=== PATIENT | female | born 1965 | race Caucasian/White ===

== ENCOUNTER 2017-10-14 13:09 | Emergency (ER) | payer OTHER ==
[2017-10-14 13:09] VITALS: BMI 34.5
[2017-10-14 13:28] VITALS: BP 139/83; PULSE 79; RESP 18; TEMP 98; O2SAT 100
--- NOTE | 2017-10-14 13:45 | C.PDOC ---
History Of Present Illness 51 y/o female presents to ED with complaints of sore throat and subjective fever since last night. Patient states she notice blood in spit and "hurts when swallowing" and "She can't swallow solids". pt later states she has pain with swallowing, but can actually take the food down. Patient denies nausea, vomiting, diarrhea, chest pain or any other complaints at this time. Time Seen by Provider: 10/14/17 13:32 Chief Complaint (Nursing): ENT Problem History Per: Patient History/Exam Limitations: no limitations Onset/Duration Of Symptoms: Days Current Symptoms Are (Timing): Still Present Location Of Pain: Throat Past Medical History Reviewed: Historical Data, Nursing Documentation, Vital Signs Vital Signs: Last Vital Signs Temp 98 F 10/14/17 13:24 Pulse 79 10/14/17 13:24 Resp 18 10/14/17 13:24 BP 139/83 10/14/17 13:24 Pulse Ox 100 10/14/17 16:06 - Medical History PMH: HTN Surgical History: No Surg Hx Family History: States: No Known Family Hx - Social History Hx Alcohol Use: Yes Hx Substance Use: No - Immunization History Hx Tetanus Toxoid Vaccination: Yes Hx Influenza Vaccination: No Hx Pneumococcal Vaccination: Yes Review Of Systems Except As Marked, All Systems Reviewed And Found Negative. ENT: Positive for: Throat Pain, Throat Swelling Physical Exam - Physical Exam Appears: Non-toxic, No Acute Distress Skin: Normal Color, Warm, Dry, No Rash Head: Atraumatic, Normacephalic Eye(s): bilateral: Normal Inspection Ear(s): Bilateral: Normal Oral Mucosa: Moist Throat: Erythema, No Exudate, No Drooling Neck: Normal ROM, Supple Cardiovascular: Rhythm Regular Respiratory: Normal Breath Sounds, No Rales, No Rhonchi, No Wheezing Gastrointestinal/Abdominal: Soft, No Tenderness, No Guarding, No Rebound Extremity: Normal ROM, No Pedal Edema Neurological/Psych: Oriented x3 ED Course And Treatment O2 Sat by Pulse Oximetry: 100 (RA) Pulse Ox Interpretation: Normal Medical Decision Making Medical Decision Making: as pt reports "difficulty swallowing", offered ct imaging - p tdeclines and states "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 rapid strep neg, pt taking po. advise pt to f/u with pmd and return precautions. Disposition - Disposition Referrals: Larry Lerma MD [Staff Provider] - Disposition: HOME/ ROUTINE Disposition Time: 16:06 Condition: STABLE Additional Instructions: follow up with your doctor/specialist. return to er with worsening symptoms or concerns. Instructions: Pharyngitis (ED) Forms: [facility] (Faroese) - Clinical Impression Clinical Impression: Pharyngitis - Scribe Statement The provider has reviewed the documentation as recorded by the Baldoibbritt Mix All medical record entries made by the Stephen were at my direction and personally dictated by me. I have reviewed the chart and agree that the record accurately reflects my personal performance of the history, physical exam, medical decision making, and the department course for this patient. I have also personally directed, reviewed, and agree with the discharge instructions and disposition.
== END 2017-10-14 16:02 | disposition home or self-care (01) ==
LOC: C.ER 13:09
DX: J02.9 Acute pharyngitis, unspecified (principal)
CPT/HCPCS: 87070; 87430; 99282; J8540

== ENCOUNTER 2018-09-25 12:49 | Emergency (ER) | payer OTHER ==
[2018-09-25 12:49] VITALS: BMI 26.7
[2018-09-25] MEDS ORDERED: Albuterol-Ipratrop 3 mg / 0.5 (3 ml) UD INH STA ×2 (14:19→14:49)
--- NOTE | 2018-09-25 14:22 | C.PDOC ---
History Of Present Illness 52 y/o female with PMH HTN presents to the ER complaining of intermittent cough which has been present for the past 1.5 months after prior URI. Patient states that she now has cough productive of yellow and green sputum. Associated nasal congestion and sore throat for the last 4 days. She is also complaining of chronic right hip pain, she was evaluated for the pain in the clinic, for which she has been taking Motrin w/o relief. No recent travel/surgery/immobilizaiton, or PMH/FH of DVT/PE. Up to date on flu shot. Denies having headache, fever, chills, visual changes, neck pain, CP, SOB, vomiting, hemoptysis, calf swelling, calf pain, abdominal pain, back pain, urinary symptoms, and diarrhea. Chief Complaint (Nursing): Flu-like Symptoms History Per: Patient History/Exam Limitations: no limitations Onset/Duration Of Symptoms: Days Current Symptoms Are (Timing): Still Present Severity: Moderate Past Medical History Reviewed: Historical Data, Nursing Documentation, Vital Signs Vital Signs: Last Vital Signs Temp 98.1 F 09/25/18 13:29 Pulse 93 H 09/25/18 13:29 Resp 20 09/25/18 13:29 BP 144/85 09/25/18 13:29 Pulse Ox 99 09/25/18 13:29 - Medical History PMH: HTN Surgical History: No Surg Hx Family History: States: No Known Family Hx - Social History Hx Alcohol Use: No Hx Substance Use: No - Immunization History Hx Tetanus Toxoid Vaccination: Yes Hx Influenza Vaccination: No Hx Pneumococcal Vaccination: Yes Review Of Systems Except As Marked, All Systems Reviewed And Found Negative. Constitutional: Negative for: Fever, Chills Eyes: Negative for: Vision Change, Redness ENT: Positive for: Nose Congestion, Throat Pain Cardiovascular: Negative for: Chest Pain, Palpitations, Edema, Light Headedness Respiratory: Positive for: Cough, Sputum. Negative for: Shortness of Breath, Hemoptysis, SOB with Excertion, Pleuritic Pain, Wheezing Gastrointestinal: Negative for: Nausea, Vomiting, Abdominal Pain, Diarrhea Genitourinary: Negative for: Dysuria, Frequency Musculoskeletal: Negative for: Neck Pain, Back Pain Skin: Negative for: Rash Neurological: Negative for: Weakness, Numbness, Headache, Dizziness Physical Exam - Physical Exam Appears: Well, Non-toxic, No Acute Distress Skin: Normal Color, Warm, Dry Eye(s): bilateral: Normal Inspection, PERRL, EOMI Ear(s): Bilateral: Normal Nose: Normal Oral Mucosa: Moist Tongue: Normal Appearing Lips: Normal Appearing Throat: Normal Neck: Normal Cardiovascular: Rhythm Regular Respiratory: Decreased Breath Sounds, Wheezing (mild; expiratory throughout all lung brown) Gastrointestinal/Abdominal: Normal Exam Back: Normal Inspection Extremity: Normal ROM, No Tenderness, No Deformity Extremity: Bilateral: Atraumatic, No Pedal Edema, Normal Color And Temperature, Normal ROM Pulses: Left Radial: Normal, Right Radial: Normal Neurological/Psych: Oriented x3, Normal Speech, Normal Cognition, Normal Cranial Nerves, Normal Motor, Normal Sensation Gait: Steady ED Course And Treatment O2 Sat by Pulse Oximetry: 99 (RA) Pulse Ox Interpretation: Normal Medical Decision Making Medical Decision Making: Plan: --CXR --Rapid Strep --Duoneb CXR FINDINGS: LUNGS: No active pulmonary disease. PLEURA: No significant pleural effusion identified. No pneumothorax apparent. CARDIOVASCULAR: No aortic atherosclerotic calcification present. Normal cardiac size. No pulmonary vascular congestion. OSSEOUS STRUCTURES: No significant abnormalities. VISUALIZED UPPER ABDOMEN: Normal. OTHER FINDINGS: None. IMPRESSION: No acute cardiopulmonary disease appreciated. Rapid strep: negative Patient feels much better on re-evaluation after duonebs, reports decreased cough and congestion. On exam, patient has decreased wheezing bilaterally and is moving air well. Patient stating she is ready to go home. Plan of care and diagnostic testing results discussed with patient, and strict instructions given regarding prescriptions, importance of follow up, and signs to return to Emergency Department, to include difficulty breathing, chest pain, lightheadedness, or any other new/worsening symptoms. Patient verbalizes understanding of discussion. Patient A&Ox3, ambulating with steady gait, stable for discharge home. Impression: Upper Respiratory Infection Plan: * Increase fluids * Z-Tima * Flonase * Albuterol Inhaler * Clinic followup * Return to ER for new/worsening symptoms Disposition - Disposition Referrals: [facility] [Outside] Disposition: HOME/ ROUTINE Disposition Time: 15:00 Condition: IMPROVED Additional Instructions: Increase fluids Take antibiotic as prescribed Use albuterol inhaler 2 puffs every 6 hours as needed Use flonase every morning 2 sprays per nostril Followup with clinic within 2 days Return to ER for new/worsening symptoms Prescriptions: Albuterol HFA [Ventolin HFA 90 mcg/actuation (8 g)] 2 puff IH [id number] PRN #60 puff PRN Reason: asthma Azithromycin [Z-Tima] 250 mg PO DAILY #6 tab Fluticasone Propionate [Flonase] 2 spr NS DAILY #1 bottle Naproxen 500 mg PO Q12H PRN #30 tab PRN Reason: Pain, Moderate (4-7) Instructions: Seasonal Allergies in Adults, Allergy Skin Testing, Bacterial Upper Respiratory Infection, Adult Forms: [employer] [facility] (Ugandan) - Clinical Impression Clinical Impression: Upper respiratory infection - PA / CONFIDENTIAL INVESTIGATOR / Resident Statement MD/DO has reviewed & agrees with the documentation as recorded. - Scribe Statement The provider has reviewed the documentation as recorded by the Stephen Ryder Provider Attestation All medical record entries made by the Baldoibbritt were at my direction and personally dictated by me. I have reviewed the chart and agree that the record accurately reflects my personal performance of the history, physical exam, medical decision making, and the department course for this patient. I have also personally directed, reviewed, and agree with the discharge instructions and disposition.
[2018-09-25] MEDS ORDERED: Albuterol-Ipratrop 3 mg / 0.5 (3 ml) UD ONE ×2 (14:29→14:42)
--- NOTE | 2018-09-25 15:31 | RAD ---
Date of service: 09/25/2018 HISTORY: cough r/o PNA COMPARISON: No prior. TECHNIQUE: Chest PA and lateral FINDINGS: LUNGS: No active pulmonary disease. PLEURA: No significant pleural effusion identified. No pneumothorax apparent. CARDIOVASCULAR: No aortic atherosclerotic calcification present. Normal cardiac size. No pulmonary vascular congestion. OSSEOUS STRUCTURES: No significant abnormalities. VISUALIZED UPPER ABDOMEN: Normal. OTHER FINDINGS: None. IMPRESSION: No acute cardiopulmonary disease appreciated.
[2018-09-25 15:40] VITALS: BP 137/85; PULSE 81; RESP 18; TEMP 98.3
[2018-09-25 15:44] VITALS: O2SAT 99
== END 2018-09-25 16:00 | disposition home or self-care (01) ==
LOC: C.ER 12:49
DX: J06.9 Acute upper respiratory infection, unspecified (principal); I10 Essential (primary) hypertension

== ENCOUNTER 2018-12-22 09:06 | Emergency (ER) | payer OTHER ==
[2018-12-22 09:06] VITALS: BMI 26.7
[2018-12-22 09:46] VITALS: BP 147/86; RESP 20; TEMP 99; O2SAT 100
[2018-12-22 09:47] VITALS: PULSE 105
[2018-12-22 11:33] LABS: HCG,QUALITATIVE URINE NEGATIVE (NEGATIVE)
--- NOTE | 2018-12-22 11:51 | C.PDOC ---
History Of Present Illness 53 year old female presents to the ED for evaluation of generalized body aches, fever, chills, sore throat, cough and mild dysuria since last night. Patient denies nausea, vomiting, diarrhea, rash, sick contacts. Time Seen by Provider: 12/22/18 10:03 Chief Complaint (Nursing): Flu-like Symptoms History Per: Patient History/Exam Limitations: no limitations Onset/Duration Of Symptoms: Hrs Current Symptoms Are (Timing): Still Present Sick Contacts (Context): None Associated Symptoms: Fever, Chills, Sore Throat, Cough, Myalgias. denies: Nausea, Vomiting, Diarrhea Ear Symptoms: Bilateral: None Additional History Per: Patient Past Medical History Reviewed: Historical Data, Nursing Documentation, Vital Signs Vital Signs: Last Vital Signs Temp 99 F 12/22/18 09:44 Pulse 105 H 12/22/18 09:44 Resp 20 12/22/18 09:44 BP 147/86 12/22/18 09:44 Pulse Ox 100 12/22/18 09:44 - Medical History PMH: HTN Surgical History: No Surg Hx Family History: States: No Known Family Hx - Social History Hx Alcohol Use: No Hx Substance Use: No - Immunization History Hx Tetanus Toxoid Vaccination: Yes Hx Influenza Vaccination: Yes Hx Pneumococcal Vaccination: No Review Of Systems Constitutional: Positive for: Fever, Chills ENT: Positive for: Throat Pain Respiratory: Positive for: Cough. Negative for: Shortness of Breath Gastrointestinal: Negative for: Nausea, Vomiting, Abdominal Pain, Diarrhea Genitourinary: Positive for: Dysuria (mild ) Musculoskeletal: Positive for: Other (generalized body aches ) Skin: Negative for: Rash Neurological: Negative for: Weakness, Numbness, Headache, Dizziness Physical Exam - Physical Exam Appears: Well, Non-toxic, Other (uncomfortable appearing ) Skin: Normal Color, Warm, Dry, No Rash Head: Atraumatic, Normacephalic Eye(s): bilateral: Normal Inspection Ear(s): Bilateral: Normal Nose: Normal, No Discharge Oral Mucosa: Moist Throat: Normal, No Erythema, No Exudate Neck: Supple Lymphatic: No Adenopathy Cardiovascular: Rhythm Regular, No Murmur, Other (mildly tachycardic ) Respiratory: Normal Breath Sounds, No Rales, No Rhonchi, No Wheezing, Other (occasional coughing ) Gastrointestinal/Abdominal: Normal Exam, Bowel Sounds, Soft, No Tenderness Extremity: Normal ROM Neurological/Psych: Oriented x3 ED Course And Treatment - Laboratory Results Lab Results: Urine HCG, Qual Negative (NEGATIVE) 12/22/18 11:02 Urine HCG, Qual Negative (NEGATIVE) 12/22/18 11:02 O2 Sat by Pulse Oximetry: 100 (on RA) Pulse Ox Interpretation: Normal Progress Note: UA, Upreg ordered and reviewed. UA neg for UTI. Patient given PO Tylenol and PO Tamiflu (suspect viral syndrome/influenza). Patient given Rxs for Tamiflu, Naprosyn and Tessalon. Patient instructed to drink plenty of fluids, get rest and follow up with PMD in 1-2 days. She understands she should return to ED if symptoms worsen. Reevaluation Time: 12:15 Reassessment Condition: Improved Disposition Counseled Patient/Family Regarding: Studies Performed, Diagnosis, Need For Followup, Rx Given - Disposition Referrals: Emanuel Timmons MD [Staff Provider] - Disposition: HOME/ ROUTINE Disposition Time: 12:15 Condition: STABLE Additional Instructions: FOLLOW UP WITH YOUR DOCTOR IN 1-2 DAYS USE MEDICATIONS DIRECTED RETURN TO ER IF SYMPTOMS WORSEN Prescriptions: Benzonatate [Tessalon Perles] 100 mg PO BID PRN #15 sgl PRN Reason: Cough Naproxen 375 mg PO BID PRN #20 tablet PRN Reason: pain Oseltamivir Phosphate [Tamiflu] 75 mg PO BID #10 capsule Instructions: Viral Syndrome (DC) Forms: [facility] (Bahamian), Work Excuse Print Language: GUAMANIAN - Clinical Impression Clinical Impression: Influenza-like illness, Viral syndrome - Scribe Statement The provider has reviewed the documentation as recorded by the Scribe (Keely Chirinos) Provider Attestation: All medical record entries made by the Scribe were at my direction and personally dictated by me. I have reviewed the chart and agree that the record accurately reflects my personal performance of the history, physical exam, medical decision making, and the department course for this patient. I have also personally directed, reviewed, and agree with the discharge instructions and disposition.
[2018-12-22 11:53] LABS: SQUAMOUS EPITHIAL 1 /hpf (0-5); URINE BACTERIA RARE (<OCC); URINE BILIRUBIN NEGATIVE (NEGATIVE); URINE BLOOD NEGATIVE (NEGATIVE); URINE CLARITY Clear (Clear); URINE COLOR Straw (YELLOW); URINE GLUCOSE (UA) NORMAL (Normal); URINE LEUKOCYTE ESTERASE NEG Leu/uL (Negative); URINE PROTEIN NEGATIVE (NEGATIVE); URINE UROBILINOGEN NORMAL mg/dL (0.2-1.0)
== END 2018-12-22 12:16 | disposition home or self-care (01) ==
LOC: C.ER 09:06
DX: J11.1 Influenza due to unidentified influenza virus with other respiratory manifestations (principal); B34.9 Viral infection, unspecified